=== PATIENT | male | born 1995 | race African-American/Black ===

== ENCOUNTER 2016-10-30 21:14 | Emergency (ER) | payer OTHER ==
[2016-10-30 22:44] VITALS: BP 140/73
== END 2016-10-30 22:44 | disposition home or self-care (01) ==
LOC: ED 21:14
DX: M54.9 Dorsalgia, unspecified (principal); M25.511 Pain in right shoulder; M54.2 Cervicalgia
CPT/HCPCS: 72072

== ENCOUNTER 2016-11-27 19:47 | Emergency (ER) | payer OTHER ==
[~2016-11-27] VITALS: Ht 182.9 cm; Wt 94.8 kg
[2016-11-27 21:40] VITALS: BP 134/80
== END 2016-11-27 21:40 | disposition home or self-care (01) ==
LOC: ED 19:47
DX: S46.911A Strain of unspecified muscle, fascia and tendon at shoulder and upper arm level, right arm, initial encounter (principal); V49.9XXA Car occupant (driver) (passenger) injured in unspecified traffic accident, initial encounter; Y93.89 Activity, other specified; Y99.8 Other external cause status; Y92.89 Other specified places as the place of occurrence of the external cause
CPT/HCPCS: J1885